=== PATIENT | male | born 1985 | race Caucasian/White ===

== ENCOUNTER 2024-09-13 03:05 | Emergency (ER) | payer MEDICAID ==
[~2024-09-13] VITALS: Ht 180.3 cm; Wt 76.9 kg
[~2024-09-13 03:05] MED LIST: TRAM-297 PO
[2024-09-13 03:21] VITALS: BP 103/66; PULSE 84; RESP 18; TEMP 98; O2SAT 96
--- NOTE | 2024-09-13 03:34 | ED.PDOC ---
GI ASSESSMENT HPI Comments 39 year old male presents to ER with complaints of right groin pain x 1 day. Patient with PMH significant for right inguinal hernia repair at this hospital in "2016" states he's been experiencing 7/10 right groin pain with radiation towards right side of abdomen/right flank x 1 day. Denies use of medications for current symptoms. Patient presents to ER ambulatory on arrival, with steady gait, in no distress. Denies fever, n/v, body aches, chills, trauma/injury/heavy lifting, testicular pain, changes in urination or any further symptoms/complaints Chief Complaint: Abdominal Pain Time Seen by MD: 03:23 Primary Care Provider: [facility] Reviewed Notes: Nurses Notes, Medications, Allergies Allergies: Coded Allergies: NO KNOWN ALLERGIES (Unverified , 05/23/15) Home Meds Reported Medications Tramadol Hcl (Ultram) 50 Mg Tab, 1 TAB PO QID, #30 TAB 05/23/15 Information Source: Patient Mode of Arrival: Ambulatory Past Medical History PAST MEDICAL HISTORY: Denies Surgical History (Other): Right inguinal hernia repair- 2016 Family History Family History: Unknown Social History Smoker: Non-Smoker Alcohol: Occasionally Drugs: Marijuana Lives In: Home Constitutional: denies: chills, diaphoresis, fatigue, fever, malaise, sweats, weakness, others EENTM: denies: blurred vision, double vision, ear bleeding, ear discharge, ear drainage, ear pain, ear ringing, eye pain, eye redness, hearing loss, mouth pain, mouth swelling, nasal discharge, nose bleeding, nose congestion, nose pain, photophobia, tearing, throat pain, throat swelling, voice changes, others Respiratory: denies: cough, hemoptysis, orthopnea, SOB at rest, shortness of breath, SOB with excertion, stridor, wheezing, others Cardiovascular: denies: chest pain, dizzy spells, diaphoresis, Dyspnea on exertion, edema, irregular heart beat, left arm pain, lightheadedness, palpitations, PND, syncope, others Gastrointestinal: reports: others (As stated in HPI) Genitourinary: denies: burning, dysuria, flank pain, frequency, hematuria, incontinence, penile discharge, penile sore, pain, testicle pain, testicle sw elling, urgency, others Neurological: denies: dizziness, fainting, headache, left sided numbness, left sided weakness, numbness, paresthesia, pre-existing deficit, right sided numbness, right sided weakness, seizure, speech problems, tingling, tremors, weakness, others Musculoskeletal: denies: back pain, gout, joint pain, joint swelling, muscle pain, muscle stiffness, neck pain, others Integumetry: denies: bruises, change in color, change in hair/nails, dryness, laceration, lesions, lumps, rash, wounds, others Allergic/Immunocompromised: denies: Difficulty Healing, Frequent Infections, Hives, Itching, others Hematologic/Lymphatic: denies: anemia, blood clots, easy bleeding, easy bruising, swollen glands, others Endocrine: denies: excessive hunger, excessive sweating, excessive thirst, excessive urination, flushing, intolerance to cold, intolerance to heat, unexplained weight gain, unexplained weight loss, others Psychiatric: denies: anxiety, bipolar disorder, depression, hopeless, panic disorder, schizophrenia, sleepless, suicidal, others Physical Exam General Appearance: No Apparent Distress HEENT: PERRL/EOMI Neck: Full Range of Motion, Non-Tender, Normal Respiratory: Chest Non-Tender, Lungs Clear, No Accessory Muscle Use, No Respiratory Distress, Normal Breath Sounds Cardiovascular: No Murmur, No Gallop, Regular Rate/Rhythm Breast Exam: Deferred Gastrointestinal: No Organomegaly, Non Tender, No Pulsatile Mass, Normal Bowel Sounds, Soft Genitalia: Normal, Other (No palpable lumps/skin changes to right groin noted) Pelvic: Deferred Rectal: Deferred Extremities: Normal capillary refill, Normal range of motion Musculoskeletal : Extremity Location: Back (TTP to right flank noted. 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 Was a procedure done?: No Sedation Sedation?: No GI differential Dx Differential Diagnosis: GI hemorrhage, Hernia, Ischemic Bowel, Trauma intraabdominal, Urinary Obstruction X-Ray, Labs, Meds, VS Vital Signs Date Time Temp Pulse Resp B/P (MAP) Pulse Ox O2 Delivery O2 Flow Rate FiO2 5/20/25 03:21 98.0 84 18 103/66 (78) 96 98.0 Lab Test 09/13/24 03:45 09/13/24 03:20 Range/Units White Blood Count 9.8 4.4-10.8 10^3/uL Red Blood Count 4.49 L 4.5-5.90 10^6/uL Hemoglobin 13.6 13.5-17.5 g/dL Hematocrit 39.4 L 41.0-53.0 % Mean Corpuscular Volume 87.8 80.0-100.0 fL Mean Corpuscular Hemoglobin 30.2 28.0-32.0 pg Mean Corpuscular Hemoglobin Concent 34.4 32.0-36.0 g/dL Red Cell Distribution Width 13.0 11.8-14.3 % Platelet Count 240 140-450 10^3/uL Mean Platelet Volume 8.0 6.9-10.8 fL Neutrophils (%) (Auto) 57.1 37.0-80.0 % Lymphocytes (%) (Auto) 33.6 10.0-50.0 % Monocytes (%) (Auto) 7.3 0.0-12.0 % Eosinophils (%) (Auto) 1.5 0.0-7.0 % Basophils (%) (Auto) 0.5 0.0-2.0 % Neutrophils # (Auto) 5.6 1.6-8.6 10 ^3/uL Lymphocytes # (Auto) 3.3 0.4-5.4 10 ^3/uL Monocytes # (Auto) 0.7 0-1.3 10 ^3/uL Eosinophils # (Auto) 0.2 0-0.8 10 ^3/uL Basophils # (Auto) 0 0-0.2 10 ^3/uL Nucleated Red Blood Cells 0.1 % Sodium Level 139 136-145 mmol/L Potassium Level 3.8 3.5-5.1 mmol/L Chloride Level 104 98-107 mmol/L Carbon Dioxide Level 27 20-31 mmol/L Anion Gap 8 5-15 Blood Urea Nitrogen 14 9-23 mg/dL Creatinine 1.18 0.700-1.30 mg/dL Glomerular Filtration Rate Calc 81 >90 mL/min BUN/Creatinine Ratio 11.9 10.0-20.0 Serum Glucose 108 H 74-106 mg/dL Calcium Level 8.9 8.7-10.4 mg/dL Urine Color Yellow Yellow Urine Clarity Clear Clear Urine pH 5.5 5.0-9.0 Urine Specific [place] 1.029 1.001-1.035 Urine Protein Trace H Negative Urine Ketones Negative Negative Urine Blood 2+ H Negative /uL Urine Nitrite Negative Negative Urine Bilirubin Negative Negative Urine Urobilinogen Normal Negative mg/dL Urine Leukocyte Esterase Trace Negative /uL Urine RBC 48 0 - 3 /hpf Urine Microscopic WBC 9 H 0-3 /HPF Urine Squamous Epithelial Cells None seen <5 /hpf Urine Bacteria None seen None Seen /hpf Urine Mucus Few None Seen Urine Glucose Normal Normal mg/dL Current Medications Medications (Trade) Dose Ordered Sig/James Route Start Time Stop Time Status Last Admin Sodium Chloride 1,000 ml @ 1,000 mls/hr Q1H ONCE IV 09/13/24 04:00 09/13/24 04:59 DC 09/13/24 04:23 Ketorolac Tromethamine (Toradol Injection) 30 mg ONCE ONCE IV 09/13/24 04:00 09/13/24 04:01 DC 09/13/24 04:40 Tamsulosin HCl (Flomax) 0.4 mg ONCE ONCE PO 09/13/24 04:00 09/13/24 04:01 DC 09/13/24 04:39 Ceftriaxone Sodium 50 ml @ 100 mls/hr ONCE ONCE IV 09/13/24 05:15 09/13/24 05:44 DC 09/13/24 05:21 PATIENT: REGLA FONSECA ACCT: [id number] UNIT: [id number] : 1985 LOC: ER ROOM / BED: / AGE / SEX: 39 / M ADM STATUS: REG ER SERVICE [id number] ORDERING PHYSICIAN: ARELIS GOMEZ PROCEDURE(s): ABPL - CT AB PEL WO CON-NO ORAL OR IV REASON: Abdominal pain/right groin pain, hx right inguinal hernia ORDER NUMBER(s): [id number], ACCESSION NUMBER(s): [id number] Exam: CT CT AB PEL WO CON-NO ORAL OR IV History: Abdominal pain/right groin pain, hx right inguinal hernia Comparison Study: None TECHNIQUE: Multidetector CT of the abdomen and pelvis was performed from lung bases to pubic symphysis. Imaging was performed without IV contrast. Axial, coronal and sagittal multiplanar reformats were obtained from the axial data set by the technologist. Radiation optimization: All CT scans at this facility use at least one of these dose optimization techniques: automated exposure control mA and/or kV adjustment per patient size (includes targeted exams where dose is matched to clinical indication) or iterative reconstruction. Radiation Dose Information: CT Dose: CTDI volume is 8.83 mGy. Dose-length product is 512.82 mGy*cm FINDINGS: Evaluation of solid organs is limited due to lack of intravenous contrast use. Imaged portions of the lung bases appear unremarkable. Liver, spleen, pancreas, gallbladder, and adrenal glands appear unremarkable. 1 cm obstructing calculus in the right mid ureter results in mild right hydronephrosis. No evidence of bowel obstruction or focal bowel wall thickening. No discrete hernia. No suspicious osseous lesion. IMPRESSION: 1. 1 cm obstructing calculus in the right mid ureter with mild hydronephrosis. ATED BY: SUDHA HARMAN MD DICTATED DATE/TIME: 09/13/24349 SIGNED BY: SUDHA HARMAN MD SIGNED DATE/TIME: 09/13/24349 CC: CBC reviewed without any significant abnormalities BMP reviewed without any significant abnormalities Urinalysis reviewed- urine leukocyte esterase trace, urine nitrites negative, urine blood 2+ CT abdomen/pelvis w/o contrast reviewed Hep-lock IV ordered NS 1 liter IV ordered Toradol 30 mg IV ordered Flomax .4 mg PO ordered Rocephin 1 g IV ordered Patient verbalized understanding and agreeable with current plan of care Patient put up for admission to hospitalist for right-sided kidney stone/right sided hydronephrosis and need for urology consultation Time of 1ST Reevaluation: 03:32 Reevaluation 1ST: N/A Patient Education/Counseling: Diagnosis, Treatment, Prognosis, Need For Follow Up Family Education/Counseling: No Family Present Departure 1 Departure Time of Disposition: 04:24 Impression: Primary Impression: Right nephrolithiasis Additional Impressions: Hydronephrosis Qualified Codes: N13.2 - Hydronephrosis with renal and ureteral calculous obstruction UTI (urinary tract infection) Qualified Codes: N30.01 - Acute cystitis with hematuria Disposition: ADMITTED INPATIENT Condition: Stable Critical Care Note Critical Care Time?: No Stability Stability form required: No Heart Score Heart Score: Heart Score Response (Comments) Value History N/A 0 EKG N/A 0 Age N/A 0 Risk Factors N/A 0 Troponin N/A 0 Total 0 ARELIS GOMEZ September 13, 2024 03:34
--- NOTE | 2024-09-13 03:52 | DVH ---
Exam: CT CT AB PEL WO CON-NO ORAL OR IV History: Abdominal pain/right groin pain, hx right inguinal hernia Comparison Study: None TECHNIQUE: Multidetector CT of the abdomen and pelvis was performed from lung bases to pubic symphysi s. Imaging was performed without IV contrast. Axial, coronal and sagittal multiplanar reformats were obtained from the axial data set by the technologist. Radiation optimization: All CT scans at this facility use at least one of these dose optimization sendy hniques: automated exposure control mA and/or kV adjustment per patient size (includes targeted exam s where dose is matched to clinical indication) or iterative reconstruction. Radiation Dose Information: CT Dose: CTDI volume is 8.83 mGy. Dose-length product is 512.82 mGy*cm FINDINGS: Evaluation of solid organs is limited due to lack of intravenous contrast use. Imaged portions of the lung bases appear unremarkable. Liver, spleen, pancreas, gallbladder, and adre nal glands appear unremarkable. 1 cm obstructing calculus in the right mid ureter results in mild rig ht hydronephrosis. No evidence of bowel obstruction or focal bowel wall thickening. No discrete hernia. No suspicious os seous lesion. IMPRESSION: 1. 1 cm obstructing calculus in the right mid ureter with mild hydronephrosis.
[2024-09-13 04:02] LABS: Urine Bacteria None Seen /hpf (None Seen)
[2024-09-13 04:07] LABS: Basophils # (auto) 0 10 ^3/uL (0-0.2); Basophils % (auto) 0.5 % (0.0-2.0); Eosinophils # (auto) 0.2 10 ^3/uL (0-0.8); Eosinophils % (auto) 1.5 % (0.0-7.0); Hematocrit 39.4 % (41.0-53.0); Hemoglobin 13.6 g/dL (13.5-17.5); Lymphocytes # (auto) 3.3 10 ^3/uL (0.4-5.4); Lymphocytes % (auto) 33.6 % (10.0-50.0); Mean Corpuscular Hemoglobin 30.2 pg (28.0-32.0); Mean Corpuscular Hgb Conc. 34.4 g/dL (32.0-36.0); Mean Corpuscular Volume 87.8 fL (80.0-100.0); Monocytes # (auto) 0.7 10 ^3/uL (0-1.3); Monocytes % (auto) 7.3 % (0.0-12.0); Neutrophils # (auto) 5.6 10 ^3/uL (1.6-8.6); Neutrophils % (auto) 57.1 % (37.0-80.0); Nucleated Red Blood Cells % 0.1 %; Platelet Count (auto) 240 10^3/uL (140-450); Red Blood Cells 4.49 10^6/uL (4.5-5.90); White Blood Cell 9.8 10^3/uL (4.4-10.8)
[2024-09-13 04:12] LABS: Chloride 104 mmol/L (98-107); Potassium 3.8 mmol/L (3.5-5.1); Sodium 139 mmol/L (136-145)
[2024-09-13 04:13] LABS: Anion Gap 8 (5-15); Carbon Dioxide 27 mmol/L (20-31)
[2024-09-13 04:14] LABS: Calcium 8.9 mg/dL (8.7-10.4)
[2024-09-13 04:19] LABS: BUN/Creatinine Ratio 11.9 (10.0-20.0); Blood Urea Nitrogen 14 mg/dL (9-23)
[2024-09-13] MEDS: SODIUM CHLORIDE 0.9% 1,000 ML IV ONE (04:23)
[2024-09-13 04:24] LABS: Glucose 108 mg/dL (74-106)
[2024-09-13] MEDS: TAMSULOSIN HYDROCHLORIDE 0.4 MG CAP PO ONE (04:39)
[2024-09-13 04:40] LABS: Urine Blood 2+ /uL (Negative); Urine Clarity Clear (Clear); Urine Color Yellow (Yellow); Urine Mucus FEW (None Seen); Urine Protein, UAD TRACE (Negative); Urine Specific Gravity 1.029 (1.001-1.035); Urine Squamous Epithelial Cell None Seen /hpf (<5); Urine Urobilinogen Normal (Negative); Urine WBC 9 /HPF (0-3); Urine pH 5.5 (5.0-9.0)
[2024-09-13] MEDS: KETOROLAC TROMETH 30 MG/ML 1ML VIAL IV ONE (04:40)
[2024-09-13] MEDS: cefTRIAXone 1GM/50ML D5W 50 ML IV ONE (05:21)
== END 2024-09-13 08:15 | disposition left against medical advice (07) ==
LOC: ER 03:11
DX: N13.2 Hydronephrosis with renal and ureteral calculous obstruction (principal); N39.0 Urinary tract infection, site not specified; F10.90 Alcohol use, unspecified, uncomplicated; Y90.9 Presence of alcohol in blood, level not specified; Z98.890 Other specified postprocedural states
CPT/HCPCS: 36415; 74176; 80048; 81001; 85025; 96361; 96365; 96375; 99285; J0696; J1885; J7030

== ENCOUNTER 2024-09-19 00:16 | Emergency (ER) | payer MEDICAID ==
[~2024-09-19] VITALS: Ht 180.3 cm; Wt 80.1 kg
[2024-09-19 00:42] VITALS: BP 111/46; PULSE 86; RESP 16; TEMP 98; O2SAT 98
[2024-09-19 01:31] LABS: Basophils # (auto) 0.1 10 ^3/uL (0-0.2); Basophils % (auto) 0.8 % (0.0-2.0); Eosinophils # (auto) 0.2 10 ^3/uL (0-0.8); Eosinophils % (auto) 2.6 % (0.0-7.0); Hematocrit 37.1 % (41.0-53.0); Lymphocytes # (auto) 2.8 10 ^3/uL (0.4-5.4); Lymphocytes % (auto) 34.6 % (10.0-50.0); Mean Corpuscular Hemoglobin 30.7 pg (28.0-32.0); Mean Corpuscular Hgb Conc. 35.1 g/dL (32.0-36.0); Mean Corpuscular Volume 87.3 fL (80.0-100.0); Monocytes # (auto) 0.6 10 ^3/uL (0-1.3); Monocytes % (auto) 7.6 % (0.0-12.0); Neutrophils # (auto) 4.3 10 ^3/uL (1.6-8.6); Neutrophils % (auto) 54.4 % (37.0-80.0); Nucleated Red Blood Cells % 0.1 %; Platelet Count (auto) 256 10^3/uL (140-450); Red Blood Cells 4.25 10^6/uL (4.5-5.90); Red Cell Distribution Width 13.5 % (11.8-14.3)
[2024-09-19 01:42] LABS: Chloride 105 mmol/L (98-107); Potassium 3.8 mmol/L (3.5-5.1); Sodium 139 mmol/L (136-145)
[2024-09-19 01:43] LABS: Anion Gap 6 (5-15); Carbon Dioxide 28 mmol/L (20-31)
--- NOTE | 2024-09-19 01:47 | DVH ---
EXAM: XY CHEST PORTABLE CLINICAL HISTORY: syncope TECHNIQUE: Single AP view of the chest WID: COMPARISON: None FINDINGS: Lines and tubes: None Chest: The heart size and pulmonary vasculature is within normal limits. No pleural effusion, pneumothorax, or consolidation. The osseous structures are grossly intact. IMPRESSION: No acute cardiopulmonary abnormality.
[2024-09-19 01:48] LABS: BUN/Creatinine Ratio 12.9 (10.0-20.0); Blood Urea Nitrogen 12 mg/dL (9-23)
[2024-09-19 01:55] LABS: Glucose 71 mg/dL (74-106)
[2024-09-19 01:56] LABS: Calcium 8.4 mg/dL (8.7-10.4)
--- NOTE | 2024-09-19 01:56 | DVH ---
CLINICAL HISTORY: syncope TECHNIQUE: Helical imaging carried out from skull base to vertex without intravenous contrast. This e xam was performed according to our departmental dose optimization program. Up-to-date CT equipment an d radiation dose reduction techniques are utilized as appropriate. CTDIVol: 53.15 mGy DLP: 850.99 mGy-cm WID: COMPARISON: None FINDINGS: The ventricles and subarachnoid spaces are normal in size and configuration. There is no midline lisa ft or mass effect. The burleson white matter interfaces are maintained. The basal cisterns are patent. Th ere is no evidence of acute intracranial hemorrhage or extra-axial fluid collection. The mastoid air cells and visualized paranasal sinuses are well-aerated. IMPRESSION: No acute intracranial abnormality.
== END 2024-09-19 04:39 | disposition left against medical advice (07) ==
LOC: ER 00:16
DX: R55 Syncope and collapse (principal); Z53.21 Procedure and treatment not carried out due to patient leaving prior to being seen by health care provider
CPT/HCPCS: 36415; 70450; 71045; 80048; 84484; 85025

== ENCOUNTER 2024-10-09 23:28 | Emergency (ER) | payer MEDICAID, OTHER ==
[~2024-10-09] VITALS: Ht 180.3 cm; Wt 81.0 kg
[2024-10-10] MEDS: DexAMETHasone SOD PHOS 10MG/1ML VIAL INJ IM ONE (00:22)
--- NOTE | 2024-10-10 00:23 | ED.PDOC ---
Eye-HPI Chief Complaint: Sore Throat Time Seen by MD: 23:30 Primary Care Provider: [facility] Reviewed Notes: Nurses Notes, Medications, Allergies Allergies: Coded Allergies: NO KNOWN ALLERGIES (Unverified , 05/23/15) Home Meds Reported Medications Tramadol Hcl (Ultram) 50 Mg Tab, 1 TAB PO QID, #30 TAB 05/23/15 Information Source: Patient Past Medical History PAST MEDICAL HISTORY: Denies Family History Family History: Unknown Social History Smoker: Non-Smoker Alcohol: Occasionally Drugs: Marijuana Lives In: Home X-Ray, Labs, Meds, VS Current Medications Medications (Trade) Dose Ordered Sig/James Route Start Time Stop Time Status Last Admin Dexamethasone Sodium Phosphate (Decadron Injection) 10 mg ONCE ONCE IM 10/10/24 00:15 10/10/24 00:16 DC 10/10/24 00:22 Departure 1 Departure Time of Disposition: 00:25 Impression: Primary Impression: Pharyngitis Qualified Codes: J02.9 - Acute pharyngitis, unspecified Disposition: 01 HOME / SELF CARE / HOMELESS Condition: Stable e-Prescriptions Methylprednisolone (Medrol Dosepak) 4 Mg Rony 4 MG PO UD for 6 Days, #21 TAB UAD Prov: SABRINA DE JESUS 10/10/24 Amoxicillin & Pot Clavulanate (AUGMENTIN TABLET) 875 Mg Tb 875 MG PO BID for 7 Days, #14 TAB Prov: SABRINA DE JESUS 10/10/24 Discharged With: Self Critical Care Note Critical Care Time?: No Stability Stability form required: No SABRINA DE JESUS Oct 10, 2024 00:23
[2024-10-10 00:26] VITALS: BP 111/64; PULSE 57; RESP 20; TEMP 98.1; O2SAT 99
[2024-10-10] MEDS ORDERED: AUG875T PO (00:26)
[2024-10-10] MEDS ORDERED: METH4PAK PO (00:26)
== END 2024-10-10 00:32 | disposition home or self-care (01) ==
LOC: ER 23:28
DX: J02.9 Acute pharyngitis, unspecified (principal); F12.90 Cannabis use, unspecified, uncomplicated; Z79.899 Other long term (current) drug therapy
CPT/HCPCS: 96372; 99283; J1100